=== PATIENT | male | born 1995 | race Caucasian/White ===

== ENCOUNTER 2019-09-16 08:25 | Emergency (ER) | payer SELFPAY, OTHER ==
[2019-09-16] MEDS ORDERED: ACETAMINOPHEN 325 MG TABLET ONE (09:01)
[2019-09-16] MEDS ORDERED: HYDROCODONE/APAP 7.5/325 MG TAB ONE (09:01)
--- NOTE | 2019-09-16 10:20 | EDPHYS ---
Physician Documentation [facility] Name: Michael Rose Age: 24 yrs Sex: Male : 1995 Arrival Date: 09/16/2019 Time: : Bed 16 Private MD: ED Physician Marquez Pulido HPI: 09/15 09:11 This 24 yrs old Male presents to ER via Ambulatory with complaints of Chest snw Congestion, Fever. 09:11 Onset: The symptoms/episode began/occurred suddenly, 3 day(s) ago, and became worse and snw became persistent. Associated signs and symptoms: Pertinent positives: chest pain, congestion, cough, fever. Modifying factors: The patient symptoms are alleviated by nothing. The patient has not experienced similar symptoms in the past. It is unknown whether or not the patient has recently seen a physician. Historical: - Allergies: 08:34 No Known Allergies; iw - Home Meds: 08:34 Advair Diskus Inhl 2 times per day [Active]; iw - PMHx: 08:34 Asthma; iw - PSHx: 08:34 Knee surgery; Appendectomy; iw - Immunization history:: Adult Immunizations not up to date. - Social history:: Smoking status: Patient denies any tobacco usage or history of. ROS: 09:11 Eyes: Negative for injury, pain, redness, and discharge, ENT: Negative for injury, snw pain, and discharge, Neck: Negative for injury, pain, and swelling, Cardiovascular: Negative for chest pain, palpitations, and edema. 09:11 Abdomen/GI: Negative for abdominal pain, nausea, vomiting, diarrhea, and constipation, Back: Negative for injury and pain, : Negative for injury, bleeding, discharge, and swelling, MS/Extremity: Negative for injury and deformity, Skin: Negative for injury, rash, and discoloration, Neuro: Negative for headache, weakness, numbness, tingling, and seizure. 09:11 Constitutional: Positive for body aches, chills, fatigue, fever, malaise, poor PO intake. 09:11 Respiratory: Positive for cough, pleurisy, shortness of breath. Exam: 09:06 Head/Face: Normocephalic, atraumatic. Eyes: Pupils equal round and reactive to light, snw extra-ocular motions intact. Lids and lashes normal. Conjunctiva and sclera are non-icteric and not injected. Cornea within normal limits. Periorbital areas with no swelling, redness, or edema. ENT: Nares patent. No nasal discharge, no septal abnormalities noted. Tympanic membranes are normal and external auditory canals are clear. Oropharynx with no redness, swelling, or masses, exudates, or evidence of obstruction, uvula midline. Mucous membranes moist. Neck: Trachea midline, no thyromegaly or masses palpated, and no cervical lymphadenopathy. Supple, full range of motion without nuchal rigidity, or vertebral point tenderness. No Meningismus. Chest/axilla: Normal chest wall appearance and motion. Nontender with no deformity. No lesions are appreciated. 09:06 Abdomen/GI: Soft, non-tender, with normal bowel sounds. No distension or tympany. No guarding or rebound. No evidence of tenderness throughout. Back: No spinal tenderness. No costovertebral tenderness. Full range of motion. Skin: Warm, dry with normal turgor. Normal color with no rashes, no lesions, and no evidence of cellulitis. MS/ Extremity: Pulses equal, no cyanosis. Neurovascular intact. Full, normal range of motion. Neuro: Awake and alert, GCS 15, oriented to person, place, time, and situation. Cranial nerves II-XII grossly intact. Motor strength 5/5 in all extremities. Sensory grossly intact. Cerebellar exam normal. Normal gait. Psych: Awake, alert, with orientation to person, place and time. Behavior, mood, and affect are within normal limits. 09:06 Constitutional: The patient appears alert, febrile, obviously ill, uncomfortable. 09:06 Cardiovascular: Rate: tachycardic, Rhythm: regular, Pulses: no pulse deficits are appreciated, Heart sounds: normal. 09:06 Respiratory: the patient does not display signs of respiratory distress, Respirations: shallow respirations, tachypnea, Breath sounds: are clear throughout. Vital Signs: 08:32 BP 129 / 87; Pulse 129; Resp 18 S; Temp 100.3; Pulse Ox 97% on R/A; Weight 108.86 kg; iw Height 5 ft. 11 in. (180.34 cm); Pain 5/10; 09:26 Pulse Ox 89% on R/A; jl7 09:30 Pulse 120; Resp 22; Temp 101; Pulse Ox 92% ; jl7 09:59 BP 114 / 56; Pulse 115; Resp 19 S; Temp 99.8(O); Pulse Ox 93% ; jl7 08:32 Body Mass Index 33.47 (108.86 kg, 180.34 cm) iw 09:26 pt coughing, O2 sats drop nd then rises after coughing stops jl7 MDM: 08:46 Patient medically screened. carlitos 10:21 Data reviewed: vital signs, nurses notes. Data interpreted: Pulse oximetry: on room air snw is 93 %. Interpretation: normal. Counseling: I had a detailed discussion with the patient and/or guardian regarding: the historical points, exam findings, and any diagnostic results supporting the discharge/admit diagnosis, lab results, the need for outpatient follow up, to return to the emergency department if symptoms worsen or persist or if there are any questions or concerns that arise at home. Special discussion: Based on the history and exam findings, there is no indication for further emergent testing or inpatient evaluation. I discussed with the patient/guardian the need to see the primary care provider for further evaluation of the symptoms. 09/15 08:37 Order name: COVID-19; Complete Time: 08:41 snw 09/15 08:37 Order name: Flu; Complete Time: 10:22 snw 09/15 08:37 Order name: CXR XRAY; Complete Time: 10:22 snw 09/15 08:37 Order name: Strep; Complete Time: 10:11 snw 09/15 10:11 Order name: Throat Culture EDWI 09/15 08:37 Order name: Droplet/Contact Precautions; Complete Time: 08:40 snw 09/15 08:37 Order name: Labs collected and sent; Complete Time: 09:29 snw 09/15 08:37 Order name: O2 Per Protocol; Complete Time: 08:40 snw Administered Medications: 09:00 Drug: Moira (7.5 mg-325 mg) 1 tabs Route: PO; jl7 10:00 Follow up: Response: No adverse reaction; Pain is decreased jl7 09:00 Drug: Tylenol 650 mg Route: PO; jl7 10:00 Follow up: Response: No adverse reaction; Temperature is decreased jl7 10:42 Drug: Zithromax 500 mg Route: PO; jl7 Disposition: 10:55 Co-signature as Attending Physician, Marquez Ashok MD I agree with the assessment and carlitos plan of care. Disposition: 09/16/19 10:20 Discharged to Home. Impression: Acute upper respiratory infection, unspecified - R/O CoVid 19, Asthma. - Condition is Stable. - Discharge Instructions: Asthma, Adult, Upper Respiratory Infection, Adult, Rehydration, Adult, COVID-19. - Prescriptions for Albuterol Sulfate 90 mcg/actuation - inhale 1-2 puff by INHALATION route every 4-6 hours; 1 Inhaler. Zithromax 500 mg Oral Tablet - take 1 tablet by ORAL route once daily for 3 days Start 09/17/19; 3 tablet. - Work release form, Medication Reconciliation Form, Thank You Letter, Antibiotic Education, Prescription Opioid Use form. - Follow up: Emergency Department; When: As needed; Reason: Worsening of condition. Follow up: Private Physician; When: 2 - 3 days; Reason: Recheck today's complaints, Continuance of care, Re-evaluation by your physician. - Problem is new. - Symptoms have worsened. Addendum: 09/18/2019 08:42 Addendum: Contacted pt at [phone], notified of positive COVID test, answered questions, r n [facility] will contact them with further instructions, patient feeling better.. Signatures: Dispatcher [employer] Marquez Monzon MD MD cha Therrien, Shelly, CAD ADMINISTRATOR-C CAD ADMINISTRATOR-Csnw Amanda Pardo, Ignacio Hunt RN, MD MD rn Leal, Jahala, RN RN jl7 Corrections: (The following items were deleted from the chart) 09/15 10:44 10:20 09/16/2019 10:20 Discharged to Home. Impression: Acute upper respiratory jl7 infection, unspecified - R/O CoVid 19; Asthma. Condition is Stable. Forms are Medication Reconciliation Form, Thank You Letter, Antibiotic Education, Prescription Opioid Use. Follow up: Emergency Department; When: As needed; Reason: Worsening of condition. Follow up: Private Physician; When: 2 - 3 days; Reason: Recheck today's complaints, Continuance of care, Re-evaluation by your physician. Problem is new. Symptoms have worsened. snw
--- NOTE | 2019-09-16 10:20 | ER ---
Nurse's Notes [facility] Name: Michael Rose Age: 24 yrs Sex: Male : 1995 Arrival Date: 09/16/2019 Time: 08:28 Bed 16 Private MD: Diagnosis: Acute upper respiratory infection, unspecified-R/O CoVid 19;Asthma Presentation: 09/15 08:32 Chief complaint: Patient states: chest hurts, has mucous in chest. vomiting, light iw headed, has hx of asthma, +body aches, X 2 days , +cough. Coronavirus screen: Surgical mask placed on patient. Patient moved to private room, placed in contact and droplet isolation with eye protection until further assessment. Patient reports a cough. Coronavirus screen: Patient reports a cough. Patient denies shortness of breath or difficulty breathing. Patient reports a measured and/or subjective temperature greater than 100.4F. Patient denies travel on a cruise ship or to a country the [facility] currently lists as an affected area. Patient denies contact with known and/or suspected case of COVID-19. Ebola Screen: Patient negative for fever greater than or equal to 101.5 degrees Fahrenheit, and additional compatible Ebola Virus Disease symptoms Patient denies exposure to infectious person. Patient denies travel to an Ebola-affected area in the 21 days before illness onset. No symptoms or risks identified at this time. Initial Sepsis Screen: Does the patient meet any 2 criteria? No. Patient's initial sepsis screen is negative. Does the patient have a suspected source of infection? No. Patient's initial sepsis screen is negative. Risk Assessment: Do you want to hurt yourself or someone else? Patient reports no desire to harm self or others. Onset of symptoms was September 14, 2019. 08:32 Method Of Arrival: Ambulatory iw 08:32 Acuity: MAX 3 iw Historical: - Allergies: 08:34 No Known Allergies; iw - Home Meds: 08:34 Advair Diskus Inhl 2 times per day [Active]; iw - PMHx: 08:34 Asthma; iw - PSHx: 08:34 Knee surgery; Appendectomy; iw - Immunization history:: Adult Immunizations not up to date. - Social history:: Smoking status: Patient denies any tobacco usage or history of. Screenin:29 Abuse screen: Denies threats or abuse. Denies injuries from another. Nutritional jl7 screening: No deficits noted. Tuberculosis screening: No symptoms or risk factors identified. Fall Risk None identified. Assessment: 09:30 Reassessment: Pt's oxygen sats noted to drop to 89% while coughing and rises after jl7 coughing stops. 09:45 General: Appears in no apparent distress. uncomfortable, ill, Behavior is calm, jl7 cooperative, appropriate for age. Pain: Complains of pain in body aches Pain currently is 5 out of 10 on a pain scale. Neuro: Level of Consciousness is awake, alert, obeys commands, Oriented to person, place, time, situation. Cardiovascular: Patient's skin is warm and dry. Respiratory: Reports cough that is non-productive, Airway is patent Respiratory effort is even, unlabored, Respiratory pattern is symmetrical, tachypnea. GI: Reports diarrhea, nausea, vomiting. Derm: Skin is pink, warm \T\ dry. 09:59 Reassessment: Patient appears in no apparent distress at this time. Patient and/or jl7 family updated on plan of care and expected duration. Pain level reassessed. Patient is alert, oriented x 3, equal unlabored respirations, skin warm/dry/pink. Patient states feeling better. Patient states symptoms have improved. Vital Signs: 08:32 BP 129 / 87; Pulse 129; Resp 18 S; Temp 100.3; Pulse Ox 97% on R/A; Weight 108.86 kg; iw Height 5 ft. 11 in. (180.34 cm); Pain 5/10; 09:26 Pulse Ox 89% on R/A; jl7 09:30 Pulse 120; Resp 22; Temp 101; Pulse Ox 92% ; jl7 09:59 BP 114 / 56; Pulse 115; Resp 19 S; Temp 99.8(O); Pulse Ox 93% ; jl7 08:32 Body Mass Index 33.47 (108.86 kg, 180.34 cm) iw 09:26 pt coughing, O2 sats drop nd then rises after coughing stops jl7 ED Course: 08:28 Patient arrived in ED. as 08:30 [facility]-C [facility]. snw 08:30 Marquez Pulido MD is Attending Physician. snw 08:34 Triage completed. iw 08:34 Arm band placed on. iw 08:40 Ge Leonard, RN is Primary Nurse. jl7 09:29 Patient has correct armband on for positive identification. Placed in gown. Bed in low jl7 position. Call light in reach. Side rails up X 1. Pulse ox on. NIBP on. 09:29 Flu and/or RSV swab sent to lab. Strep swab sent to lab. COVID-19 Swab sent to lab. jl7 09:59 CXR XRAY In Process Unspecified. EDMS 10:42 No provider procedures requiring assistance completed. Patient did not have IV access jl7 during this emergency room visit. Administered Medications: 09:00 Drug: Tea (7.5 mg-325 mg) 1 tabs Route: PO; jl7 10:00 Follow up: Response: No adverse reaction; Pain is decreased jl7 09:00 Drug: Tylenol 650 mg Route: PO; jl7 10:00 Follow up: Response: No adverse reaction; Temperature is decreased jl7 10:42 Drug: Zithromax 500 mg Route: PO; jl7 Outcome: 10:20 Discharge ordered by . snw 10:42 Discharged to home ambulatory. jl7 10:42 Condition: stable 10:42 Discharge instructions given to patient, Instructed on discharge instructions, follow up and referral plans. medication usage, Demonstrated understanding of instructions, follow-up care, medications, Prescriptions given X 3. 10:44 Patient left the ED. jl7 Signatures: Dispatcher [employer] EDIN Emily Lucero, LEGAL CASHIER-C LEGAL CASHIER-CsnKarlee Aviles Irene, RN RN Ge Leonard, RN RN jl7 Corrections: (The following items were deleted from the chart) 09:31 09:30 Pulse 120bpm; Resp 16bpm; Pulse Ox 92%; Temp 101F; jl7 jl7
--- NOTE | 2019-09-16 10:20 | RAD REPORT ---
EXAM DESCRIPTION: RAD - Chest Single View - 09/16/2019 9:58 am CLINICAL HISTORY: Fever;Cough, possible COVID-19 infection COMPARISON: April 2014 TECHNIQUE: AP portable chest image was obtained 09/16/2019 9:58 am . FINDINGS: Lung volumes are low. No peripheral mass, consolidation or hazy airspace disease identifia ble. Lung base markings are accentuated due to the shallow inspiration. No failure or volume overload . Heart and vasculature are normal. No measurable pleural effusion and no pneumothorax. No acute bony abnormality seen. No acute aortic findings suspected. IMPRESSION: Shallow inspiration film without acute cardiopulmonary finding. No findings are yet evident to indicate or supportive of COVID-19 infection.
[2019-09-16] MEDS ORDERED: AZITHROMYCIN 250 MG TAB ONE (10:32)
[2019-09-16 11:12] VITALS: BP 114/56; TEMP 99.8; O2SAT 93
== END 2019-09-16 10:44 | disposition home or self-care (01) ==
LOC: ER 08:25
DX: U07.1 COVID-19 (principal); J06.9 Acute upper respiratory infection, unspecified; J45.909 Unspecified asthma, uncomplicated
CPT/HCPCS: 71045; 87070; 87081; 87804; 99284; U0001

== ENCOUNTER 2021-08-05 17:27 | Emergency (ER) | payer OTHER, SELFPAY ==
--- NOTE | 2021-08-05 18:07 | ER ---
Nurse's Notes [facility] Name: Michael Rose Age: 26 yrs Sex: Male : 1995 Arrival Date: 08/05/2021 Time: 17:30 Bed Waiting Private MD: Diagnosis: Rash and other nonspecific skin eruption Presentation: 08/05 17:53 Chief complaint: Patient states: red raised rash to left trunk area states aparicio with ll1 heat c/o itching as well. Coronavirus screen: Vaccine status: Patient reports being unvaccinated. Ebola Screen: Patient negative for fever greater than or equal to 101.5 degrees Fahrenheit, and additional compatible Ebola Virus Disease symptoms. Risk Assessment: Do you want to hurt yourself or someone else? Patient reports no desire to harm self or others. Onset of symptoms was August 02, 2021. 17:53 Method Of Arrival: Ambulatory ll1 17:53 Acuity: MAX 4 ll1 18:35 Initial Sepsis Screen: Does the patient meet any 2 criteria? No. Patient's initial ll1 sepsis screen is negative. 18:35 Initial Sepsis Screen: Does the patient have a suspected source of infection? No. ll1 Patient's initial sepsis screen is negative. Triage Assessment: 18:32 General: Appears in no apparent distress. comfortable, Behavior is calm, cooperative, ll1 inappropriate for age. Pain: Complains of pain in left trunk Pain currently is 2 out of 10 on a pain scale. Historical: - Allergies: 17:59 No Known Allergies; ll1 - Home Meds: 17:59 albuterol sulfate 90 mcg/actuation inhalation HFAA 2 puffs [Active]; ll1 - PMHx: 17:59 Asthma; ll1 - PSHx: 17:59 Appendectomy; knee surgery; ll1 - Immunization history:: Adult Immunizations not up to date, Client reports having NOT received the Covid vaccine. - Social history:: Smoking status: Patient denies any tobacco usage or history of. Screenin:34 Abuse screen:. Nutritional screening: No deficits noted. Tuberculosis screening: No ll1 symptoms or risk factors identified. Fall Risk None identified. Vital Signs: 17:53 BP 129 / 91; Pulse 96; Resp 18; Temp 98.0; Pulse Ox 99% on R/A; Pain 2/10; ll1 18:00 BP 129 / 91; Pulse 88; Resp 18; Temp 98(O); Pulse Ox 99% on R/A; Pain 2/10; ll1 ED Course: 17:30 Patient arrived in ED. ds1 17:34 Saman Fallon PA is PHCP. [facility] 17:34 Marquez Pulido MD is Attending Physician. [facility] 17:58 Triage completed. ll1 18:32 Mark Anthony Huggins, RN is Primary Nurse. ll1 18:34 Patient has correct armband on for positive identification. ll1 18:34 No provider procedures requiring assistance completed. Patient did not have IV access ll1 during this emergency room visit. 18:35 Arm band placed on right wrist. ll1 Administered Medications: No medications were administered Medication: 18:35 VIS not applicable for this client. ll1 Outcome: 18:07 Discharge ordered by . jmm 18:35 Discharged to home ambulatory. ll1 18:35 Condition: good 18:35 Discharge instructions given to patient, Instructed on discharge instructions, follow up and referral plans. medication usage, Demonstrated understanding of instructions, follow-up care, medications, Prescriptions given X 2. 18:55 Patient left the ED. ll1 Signatures: Saman Fallon PA PA Arely Wills ds1 Mark Anthony Huggins, RN RN ll1 Corrections: (The following items were deleted from the chart) 18:00 17:59 PSHx: Appendectomy; ll1 ll1
--- NOTE | 2021-08-05 18:07 | EDPHYS ---
Physician Documentation [facility] Name: Michael Rose Age: 26 yrs Sex: Male : 1995 Arrival Date: 08/05/2021 Time: 17:30 Bed Waiting Private MD: Marquez Caballero HPI: 08/05 18:04 This 26 yrs old Male presents to ER via Ambulatory with complaints of Rash. [facility] 18:04 The patient's rash thought to be caused by an unknown cause. The rash is located on the [facility] abdomen. Onset: The symptoms/episode began/occurred gradually, 2 day(s) ago. Associated signs and symptoms: Pertinent positives: burning sensation, itching, Pertinent negatives: nausea, Pain swelling of lips, swelling of throat, swelling of tongue, vomiting. The patient has not experienced similar symptoms in the past. Historical: - Allergies: 17:59 No Known Allergies; ll1 - Home Meds: 17:59 albuterol sulfate 90 mcg/actuation inhalation HFAA 2 puffs [Active]; ll1 - PMHx: 17:59 Asthma; ll1 - PSHx: 17:59 Appendectomy; knee surgery; ll1 - Immunization history:: Adult Immunizations not up to date, Client reports having NOT received the Covid vaccine. - Social history:: Smoking status: Patient denies any tobacco usage or history of. ROS: 18:04 Constitutional: Negative for fever, chills, and weight loss, Cardiovascular: Negative jmm for chest pain, palpitations, and edema, Respiratory: Negative for shortness of breath, cough, wheezing, and pleuritic chest pain. 18:04 Skin: Positive for erythema. 18:04 All other systems are negative. Exam: 18:04 Constitutional: This is a well developed, well nourished patient who is awake, alert, jmm and in no acute distress. Head/Face: atraumatic. Eyes: EOMI, no conjunctival erythema appreciated ENT: Moist Mucus Membranes Neck: Trachea midline, Supple Chest/axilla: Normal chest wall appearance and motion. Cardiovascular: Regular rate and rhythm. No edema appreciated Respiratory: Normal respirations, no respiratory distress appreciated Abdomen/GI: Non distended, soft Back: Normal ROM 18:04 Skin: papular lesions noted to the trunk with central clearing. 18:04 Neuro: Orientation: is normal, Mentation: is normal, Memory: is normal. 18:04 Psych: Behavior/mood is pleasant, cooperative. Vital Signs: 17:53 BP 129 / 91; Pulse 96; Resp 18; Temp 98.0; Pulse Ox 99% on R/A; Pain 2/10; ll1 18:00 BP 129 / 91; Pulse 88; Resp 18; Temp 98(O); Pulse Ox 99% on R/A; Pain 2/10; ll1 MDM: 18:06 Data reviewed: vital signs, nurses notes. Counseling: I had a detailed discussion with [facility] the patient and/or guardian regarding: the historical points, exam findings, and any diagnostic results supporting the discharge/admit diagnosis, the need for outpatient follow up, to return to the emergency department if symptoms worsen or persist or if there are any questions or concerns that arise at home. ED course: Alert nontoxic in appearance in the ED. Advised follow-up PCP or dermatology for further evaluation otherwise given strict return precautions. Patient understood agrees plan of care.. 18:07 Patient medically screened. [facility] Administered Medications: No medications were administered Disposition Summary: 08/05/21 18:07 Discharge Ordered Location: Home [facility] Condition: Stable [facility] Diagnosis - Rash and other nonspecific skin eruption [facility] Followup: [facility] - With: Private Physician - When: 2 - 3 days - Reason: Recheck today's complaints, Continuance of care, Re-evaluation by your physician Discharge Instructions: - Discharge Summary Sheet [facility] - Rash, Adult [facility] Forms: - Work release form [facility] - Medication Reconciliation Form [facility] - Thank You Letter [facility] - Antibiotic Education [facility] - Prescription Opioid Use [facility] Prescriptions: - Hydroxyzine HCl 25 mg Oral Tablet - take 1 tablet by ORAL route every 6 hours As needed; 30 tablet; Refills: 0, [facility] Product Selection Permitted - Prednisone 20 mg Oral Tablet - take 3 tablets by ORAL route once daily for 5 days; 15 tablet; Refills: 0, [facility] Product Selection Permitted - Clotrimazole 1 % Topical Cream - Apply to affected area 1 application by TOPICAL route every 12 hours; 15 gram; [facility] Refills: 0, Product Selection Permitted Signatures: Saman Fallon PA PA jmm Lewis, Lynsay, RN RN ll1 Corrections: (The following items were deleted from the chart) 18:00 17:59 PSHx: Appendectomy; ll1 ll1
[2021-08-05 19:13] VITALS: BP 129/91; O2SAT 99
[2021-08-05 19:15] VITALS: TEMP 98
== END 2021-08-05 18:55 | disposition home or self-care (01) ==
LOC: ER 17:27
DX: R21 Rash and other nonspecific skin eruption (principal); J45.909 Unspecified asthma, uncomplicated
CPT/HCPCS: 99282

== ENCOUNTER 2024-05-31 04:05 | Emergency (ER) | payer SELFPAY ==
[2024-05-31] MEDS ORDERED: predniSONE 20 MG TAB ONE (04:43)
[2024-05-31] MEDS ORDERED: LEVALBUTEROL 1.25 MG/3 ML NEB ONE (04:43)
[2024-05-31] MEDS ORDERED: ACETAMINOPHEN 500 MG TAB ONE (04:44)
[2024-05-31 05:12] LABS: Influenza A Ag Negative; Influenza B Ag Negative; SARS-CoV-2 Antigen Rapid Res Negative (Negative)
--- NOTE | 2024-05-31 06:41 | ER ---
Nurse's Notes [facility] Name: Michael Rose Age: 29 yrs Sex: Male : 1995 Arrival Date: 05/31/2024 Time: 04:05 Bed 8 Private MD: Diagnosis: Acute upper respiratory infection, unspecified;Unspecified asthma with (acute) exacerbation Presentation: 05/31 04:21 Chief complaint: Patient states: fever and body aches that started 2 hours ago. cp4 Coronavirus screen: Client denies travel out of the [place] in the last 14 days. At this time, the client does not indicate any symptoms associated with coronavirus-19. Ebola Screen: Patient negative for fever greater than or equal to 101.5 degrees Fahrenheit, and additional compatible Ebola Virus Disease symptoms Patient denies exposure to infectious person. Patient denies travel to an Ebola-affected area in the 21 days before illness onset. No symptoms or risks identified at this time. Initial Sepsis Screen: Does the patient meet any 2 criteria? HR > 90 bpm. No. Patient's initial sepsis screen is negative. Does the patient have a suspected source of infection? No. Patient's initial sepsis screen is negative. Risk Assessment: Do you want to hurt yourself or someone else? Patient reports no desire to harm self or others. Onset of symptoms was May 31, 2024. 04:21 Method Of Arrival: Ambulatory 4 04:21 Acuity: MAX 3 cp4 Triage Assessment: 04:23 General: Appears in no apparent distress. uncomfortable, Behavior is calm, cooperative, cp4 appropriate for age. Pain: Complains of pain in body aches Pain does not radiate. Pain currently is 3 out of 10 on a pain scale. EENT: No signs and/or symptoms were reported regarding the EENT system. Neuro: Level of Consciousness is awake, alert, obeys commands, Oriented to person, place, time, situation. Cardiovascular: Patient's skin is warm and dry. Respiratory: Airway is patent Respiratory effort is even, unlabored. GI: No signs and/or symptoms were reported involving the gastrointestinal system. : No signs and/or symptoms were reported regarding the genitourinary system. Derm: No signs and/or symptoms reported regarding the dermatologic system. Musculoskeletal: No signs and/or symptoms reported regarding the musculoskeletal system. Historical: - Allergies: 04:23 No Known Allergies; cp4 - PMHx: 04:23 Asthma; cp4 - PSHx: 04:23 Appendectomy; knee surgery; cp4 - Immunization history:: Adult Immunizations up to date. - Infectious Disease History:: Denies. - Social history:: Smoking status: Patient denies any tobacco usage or history of. - Family history:: not pertinent. Screenin:25 [facility] ED Fall Risk Assessment (Adult) History of falling in the last 3 months, cp4 including since admission No falls in past 3 months (0 pts) Confusion or Disorientation No (0 pts) Intoxicated or Sedated No (0 pts) Impaired Gait No (0 pts) Mobility Assist Device Used No (0 pt) Altered Elimination No (0 pt) Score/Fall Risk Level 0 - 2 = Low Risk Oriented to surroundings, Maintained a safe environment, Assessed \T\ reinforced patient's understanding of fall precautions, Hourly rounding (assess needs \T\ fall precautionary measures) done. Abuse screen: Denies threats or abuse. Denies injuries from another. Nutritional screening: No deficits noted. Tuberculosis screening: No symptoms or risk factors identified. Assessment: 04:25 Pain: Pain began 2 hours ago. cp4 04:25 Reassessment: No changes from previously documented assessment. cp4 Vital Signs: 04:21 BP 142 / 82; Pulse 118; Resp 18; Temp 99.3; Pulse Ox 96% ; Weight 111.13 kg; Height 5 cp4 ft. 10 in. ; Pain 3/10; 05:47 BP 119 / 75; Pulse 113; Resp 16; Temp 98.5(O); Pulse Ox 100% on R/A; kd3 06:01 BP 119 / 75; Pulse 104; Resp 18; Pulse Ox 98% ; cp4 06:20 BP 120 / 49; Pulse 112; Resp 17; Pulse Ox 95% on R/A; kd3 04:21 Body Mass Index 35.15 (111.13 kg, 177.8 cm) cp4 04:21 Pain Scale: Adult cp4 ED Course: 04:10 Patient arrived in ED. gm2 04:12 Elmo Taylor MD is Attending Physician. rt 04:20 Kelly Manning is Primary Nurse. cp4 04:23 Triage completed. cp4 04:23 Arm band placed on right wrist. Patient placed in waiting room. cp4 04:25 Bed in low position. Call light in reach. Side rails up X 1. cp4 04:44 Chest Single View XRAY In Process Unspecified. EDMS 06:48 Provided Education on: viral illness. cp4 06:48 No provider procedures requiring assistance completed. Patient did not have IV access cp4 during this emergency room visit. Administered Medications: 04:47 Drug: Acetaminophen PO 1000 mg PO once Route: PO; cp4 06:47 Follow up: Response: No adverse reaction cp4 04:47 Drug: Levalbuterol Inhalation 1.25 mg Inhalation once Route: Inhalation; cp4 06:48 Follow up: Response: No adverse reaction cp4 04:47 Drug: predniSONE PO 40 mg PO once Route: PO; cp4 06:47 Follow up: Response: No adverse reaction cp4 Medication: 04:25 VIS not applicable for this client. cp4 Outcome: 06:40 Discharge ordered by MD. rt 06:48 Discharged to home ambulatory, cp4 06:48 Condition: stable 06:48 Discharge instructions given to patient, Instructed on discharge instructions, follow up and referral plans. Demonstrated understanding of instructions, follow-up care, medications, Prescriptions given X 1, 06:49 Patient left the ED. cp4 Signatures: Dispatcher [employer] EDMD Kell Carlson RN RN kd3 Elmo Taylor MD MD rt Potter, Christina cp4 Luz Maria Correa gm2 Corrections: (The following items were deleted from the chart) 05:48 05:47 BP 119 / 75; Pulse 88bpm; Resp 16bpm; Pulse Ox 100% RA; kd3 kd3 05:50 05:47 BP 119 / 75; Pulse 113bpm; Resp 16bpm; Pulse Ox 100% RA; kd3 kd3 06:02 06:00 BP 120 / 49; Pulse 104bpm; Resp 18bpm; Pulse Ox 98%; cp4 cp4
--- NOTE | 2024-05-31 06:41 | EDPHYS ---
Physician Documentation [facility] Name: Michael Rose Age: 29 yrs Sex: Male : 1995 Arrival Date: 05/31/2024 Time: 04:05 Bed 8 Private MD: ED Physician Elmo Taylor HPI: 05/31 04:54 This 29 yrs old Male presents to ER via Ambulatory with complaints of Fever, Pain All rt Over, Cough. 04:54 Patient presents to the ED with fever, cough, body aches starting 2 hours prior to rt arrival. States that he was wheezing, states that albuterol did not adequately improve his symptoms. He denies other acute complaints at this time, symptoms are moderate in severity, no other aggravating or alleviating factors.. Historical: - Allergies: 04:23 No Known Allergies; cp4 - PMHx: 04:23 Asthma; cp4 - PSHx: 04:23 Appendectomy; knee surgery; cp4 - Immunization history:: Adult Immunizations up to date. - Infectious Disease History:: Denies. - Social history:: Smoking status: Patient denies any tobacco usage or history of. - Family history:: not pertinent. ROS: 04:54 Cardiovascular: Negative for chest pain, palpitations, and edema, Abdomen/GI: Negative rt for abdominal pain, nausea, vomiting, diarrhea, and constipation, MS/Extremity: Negative for injury and deformity, Skin: Negative for injury, rash, and discoloration, Neuro: Negative for headache, weakness, numbness, tingling, and seizure, 04:54 Constitutional: Positive for body aches, fever, 04:54 Respiratory: Positive for cough, shortness of breath, wheezing, Exam: 04:54 Constitutional: This is a well developed, well nourished patient who is awake, alert, rt and in no acute distress. Head/Face: Normocephalic, atraumatic. Chest/axilla: Normal chest wall appearance and motion. Nontender with no deformity. No lesions are appreciated. Cardiovascular: Regular rate and rhythm with a normal S1 and S2. No gallops, murmurs, or rubs. Normal PMI, no JVD. No pulse deficits. Respiratory: Lungs have equal breath sounds bilaterally, clear to auscultation and percussion. No rales, rhonchi or wheezes noted. No increased work of breathing, no retractions or nasal flaring. Abdomen/GI: Soft, non-tender, with normal bowel sounds. No distension or tympany. No guarding or rebound. No evidence of tenderness throughout. Skin: Warm, dry with normal turgor. Normal color with no rashes, no lesions, and no evidence of cellulitis. MS/ Extremity: Pulses equal, no cyanosis. Neurovascular intact. Full, normal range of motion. Neuro: Awake and alert, GCS 15, oriented to person, place, time, and situation. Cranial nerves II-XII grossly intact. Motor strength 5/5 in all extremities. Sensory grossly intact. Cerebellar exam normal. Normal gait. Vital Signs: 04:21 BP 142 / 82; Pulse 118; Resp 18; Temp 99.3; Pulse Ox 96% ; Weight 111.13 kg; Height 5 cp4 ft. 10 in. ; Pain 3/10; 05:47 BP 119 / 75; Pulse 113; Resp 16; Temp 98.5(O); Pulse Ox 100% on R/A; kd3 06:01 BP 119 / 75; Pulse 104; Resp 18; Pulse Ox 98% ; cp4 06:20 BP 120 / 49; Pulse 112; Resp 17; Pulse Ox 95% on R/A; kd3 04:21 Body Mass Index 35.15 (111.13 kg, 177.8 cm) cp4 04:21 Pain Scale: Adult cp4 MDM: 04:24 Medical Screening Exam initiated rt 06:46 Differential diagnosis: URI, pneumonia, asthma. Data reviewed: vital signs, nurses rt notes, lab test result(s), radiologic studies. I considered the following discharge prescriptions or medication management in the emergency department Medications were administered in the Emergency Department. See MAR. Independent interpretation of the following test(s) in the Emergency Department X-Ray: My interpretation is No infiltrate seen on interpretation of x-ray images. Test considered but Not performed: CT: Symptoms most consistent with viral syndrome, with bronchospasm, low suspicion for PE, tachycardia is improved with antipyretics, CT angiogram is not indicated to rule out pulmonary embolus. Care significantly affected by the following chronic conditions: Asthma. Counseling: I had a detailed discussion with the patient and/or guardian regarding the historical points, exam findings, and any diagnostic results supporting the discharge/admit diagnosis, lab results, radiology results, the need for outpatient follow up, to return to the emergency department if symptoms worsen or persist or if there are any questions or concerns that arise at home. Response to treatment: the patient's symptoms have markedly improved after treatment. 05/31 04:29 Order name: COVID-19 Ag + Flu A+B Ag; Complete Time: 05:16 rt 05/31 04:29 Order name: Chest Single View XRAY rt Administered Medications: 04:47 Drug: Acetaminophen PO 1000 mg PO once Route: PO; cp4 06:47 Follow up: Response: No adverse reaction cp4 04:47 Drug: Levalbuterol Inhalation 1.25 mg Inhalation once Route: Inhalation; cp4 06:48 Follow up: Response: No adverse reaction cp4 04:47 Drug: predniSONE PO 40 mg PO once Route: PO; cp4 06:47 Follow up: Response: No adverse reaction cp4 Disposition Summary: 05/31/24 06:40 Discharge Ordered Notes: Location: Home rt Problem: new rt Symptoms: have improved rt Condition: Stable rt Diagnosis - Acute upper respiratory infection, unspecified rt - Unspecified asthma with (acute) exacerbation rt Followup: rt - With: Private Physician - When: 2 - 3 days - Reason: Discharge Instructions: - Discharge Summary Sheet rt - Asthma, Adult rt - Viral Respiratory Infection rt Forms: - Medication Reconciliation Form rt - Antibiotic Education rt - Prescription Opioid Use rt - Patient Portal Instructions rt - Leadership Thank You Letter rt - Work release form cp4 Prescriptions: - Prednisone 20 mg Oral tablet - take 2 tablets ORAL route once daily; 8 tablet; Refills: 0, Product Selection rt Permitted Signatures: Dispatcher [employer] Elmo Deras MD MD rt Kelly Manning cp4
--- NOTE | 2024-05-31 06:42 | RAD REPORT ---
PROCEDURE: XR Chest, 1 View CLINICAL INDICATION: The patient is 29 years old and is Male; Chest pain. TECHNIQUE: Frontal view of the chest. COMPARISON: None. FINDINGS: LUNGS: Relatively low lung volumes bilaterally. Allowing for this and patient positioning, no focal consolidation. PLEURAL SPACE: No appreciable pleural effusion or pneumothorax. MEDIASTINUM: Unremarkable cardiomediastinal contour. BONES/JOINTS: No acute osseous abnormality. IMPRESSION: Low lung volumes with no acute cardiopulmonary abnormality. Electronically signed by: Elkin Dominguez MD 05/31/2024 06:34 AM CDT Due to temporary technical issues with the PACS/[employer] reporting system, reports are being josep d by the in-house radiologist without review as a courtesy to ensure prompt reporting the interpreting radiologist is fully responsible for the content of the report. Transcribed Date/Time: 05/31/2024 6:42 AM
[2024-05-31 06:55] VITALS: TEMP 98.5
[2024-05-31 06:57] VITALS: BP 120/49; O2SAT 95
== END 2024-05-31 06:49 | disposition home or self-care (01) ==
LOC: ER 04:05
DX: J06.9 Acute upper respiratory infection, unspecified (principal); J45.901 Unspecified asthma with (acute) exacerbation; Z11.52 Encounter for screening for COVID-19
CPT/HCPCS: 36415; 71045; 87428; 99284; J7512; J7614